=== PATIENT | female | born 1955 | race Caucasian/White ===

== ENCOUNTER 2018-11-20 08:46 | Day surgery (SDC) | payer OTHER ==
[2018-11-20] MEDS ORDERED: MIDAZOLAM 1 MG/ML 2 ML INJ (10:41)
[2018-11-20] MEDS ORDERED: FENTAnyl 50 MCG/ML VIAL (10:41)
== END 2018-11-20 14:53 | disposition home or self-care (01) ==
LOC: GIL 08:46
DX: Z12.11 Encounter for screening for malignant neoplasm of colon (principal); E11.9 Type 2 diabetes mellitus without complications
CPT/HCPCS: 45378; 82962